=== PATIENT | female | born 1950 | race Caucasian/White ===

== ENCOUNTER → 2017-01-11 | Outpatient (CLI) | payer MEDICARE ==
[~2017-01-11] MED LIST: ALLO100T PO; ASPI81TA85 PO; CENTTAB47 PO; CINN500C9 PO; COUM2.5T17 PO; FLEEENE4 PR; GABA800T PO; HYDR-2807 PO; INSULADS SC; LEVO200T4 PO; LIDO5DIS41 TD; LIPI10TA PO; LORT5TAB PO; LOSA100T36 PO; MAGN250T9 PO; METF10004 PO; MILKSUS PO; MIRA3350 PO; OMEP20TA PO; SENO8.6T10 PO; SOMA350T PO; TYLE167L PO; VITA10006 PO; VITA100072 PO; VITA1TAB7 PO
[2017-01-11 09:24] LABS: MEAN CORPUSCULAR HEMOGLOBIN 30.8 pg (27.0-33.0); MEAN CORPUSCULAR HGB CONC 31.3 g/dl (32.0-36.5); MEAN CORPUSCULAR VOLUME 98.4 fl (80.0-96.0); RED CELL DISTRIBUTION WIDTH 14.2 % (11.5-14.5)
[2017-01-11 09:50] LABS: ERYTHROCYTE SEDIMENTATION RATE 45 mm/hr (0-30)
[2017-01-11 09:52] LABS: EOSINOPHILS 7 % (0-5)
[2017-01-11 09:53] LABS: ANISOCYTOSIS 1+
[2017-01-11 09:54] LABS: OVALOCYTES 1+
--- NOTE | 2017-01-11 11:53 | REP ---
TRIPLE PHASE BONE SCAN OF KNEES: Following the intravenous administration of 22 mCi of technetium 99m MDP, patient's knees are imaged in the flow phase in the anterior and posterior projections showing slight asymmetric increased blood flow to the region of the left knee. Immediate blood pool and 2 hour delayed images are performed of the knees in the anterior, posterior and both lateral projections. There is a photopenic area in the left knee joint compatible with total knee prosthesis. There is mild increased blood pooling at the anterior aspect in the region of the left patella. Delayed images show no abnormal uptake on the right. However, on the left, there is diffuse increased uptake in the patella. There is also mild increased uptake in the tibial plateaus. IMPRESSION: Mild increased blood flow to the region of the left knee. Increased blood pooling in the region of the left patella. Increased delayed activity in the left patella. Mild increased uptake in the left tibial plateaus. Some degree of loosening cannot be excluded of the tibial portion of the prosthesis. The increased uptake in the patella could possibly be due to trauma or infection. Signed by Charanjit Cui MD 01/11/2017 03:29 P
== END ==
LOC: M LAB 08:02 → M RAD 08:02
PROVIDERS: ATTEND Physician Assistant
DX: Z96.652 Presence of left artificial knee joint (principal); S83.92XD Sprain of unspecified site of left knee, subsequent encounter
CPT/HCPCS: 36415; 78315; 85007; 85027; 85652; 86140; A9503